=== PATIENT | male | born 1960 | race Caucasian/White ===

== ENCOUNTER 2017-02-07 16:02 | Outpatient (CLI) | payer BC | END 2017-02-07 20:00 | disposition home or self-care (01) | LOC: SRD 16:02 | PROVIDERS: ATTEND Internal Medicine | DX: J98.4 Other disorders of lung (principal) | CPT/HCPCS: 71020-TC ==

== ENCOUNTER 2017-04-29 10:19 | Day surgery (SDC) | payer BC ==
[2017-04-26 15:22] LABS: BASOPHILS % (AUTO) 0.4 % (0.0-2.0); EOSINOPHILS # (AUTO) 0.5 K/uL (0.0-0.4); EOSINOPHILS % (AUTO) 4.4 % (0.0-4.0); HEMATOCRIT 33.9 % (36-54); HEMOGLOBIN 11.2 g/dL (14.0-18.0); LYMPHOCYTES # (AUTO) 2.7 K/uL (1.0-5.5); LYMPHOCYTES % (AUTO) 25.2 % (20.5-51.5); MEAN CORPUSCULAR HEMOGLOBIN 26 pg (27-31); MEAN CORPUSCULAR HGB CONC 33 % (32-36); MEAN CORPUSCULAR VOLUME 79 fL (79.0-98.0); MONOCYTES # (AUTO) 1.1 K/uL (0.0-1.0); MONOCYTES % (AUTO) 9.8 % (1.7-9.3); NEUTROPHILS # (AUTO) 6.5 K/uL (1.8-7.7); NEUTROPHILS % (AUTO) 60.2 % (40.0-70.0); PLATELET COUNT (AUTO) 191 K/uL (130-430); RED BLOOD CELL COUNT(AUTO) 4.28 MIL/uL (4.2-6.2); RED CELL DISTRIBUTION WIDTH 15.4 % (9.0-15.0); WHITE BLOOD COUNT (AUTO) 10.8 K/uL (4.8-10.8)
[2017-04-26 15:34] LABS: ALBUMIN 3.5 g/dL (3.4-4.8); CALCIUM 8.8 mg/dL (8.4-11.0); CREATININE 1.2 mg/dL (0.55-1.30); POTASSIUM 3.9 mmol/L (3.5-5.1); TOTAL BILIRUBIN 0.4 mg/dL (0.0-1.0); TOTAL PROTEIN, SERUM 6.8 g/dL (6.4-8.3)
[2017-04-26 15:40] LABS: BILIRUBIN,URINE NEGATIVE (NEGATIVE); BLOOD, URINE NEGATIVE (NEGATIVE); CLARITY/URINE CLEAR (CLEAR); COLOR,URINE YELLOW (YELLOW); GLUCOSE,URINE 3+ (NEGATIVE); INR 0.9 (0.80-1.20); KETONES,URINE NEGATIVE (NEGATIVE); LEUKOCYTE ESTERASE ,URINE NEGATIVE (NEGATIVE); NITRITE, URINE NEGATIVE (NEGATIVE); PH,URINE 5.5 (5.0-8.0); PROTEIN URINE 1+ (NEGATIVE); PROTHROMBIN TIME 9.7 SECS (9.5-12.5); UROBILINOGEN,URINE 0.2 (0.2-1.0)
[2017-04-26 15:44] LABS: BACTERIA,URINE FEW /HPF (None Seen); MUCUS,URINE None Seen /LPF (None Seen); RBC,URINE NONE SEEN /HPF (0-3); WBC,URINE 0-3 /HPF (0-3)
[~2017-04-29] VITALS: Ht 177.8 cm; Wt 99.8 kg
[2017-04-29] VITALS: BP_SYST 133
[2017-04-29] MEDS ORDERED: MIDAZOLAM HCL 5 MG/5 ML VIAL IVP ONE (13:52)
[2017-04-29] MEDS ORDERED: NS IRRIG SOLN 1000 ML IR ONE (13:52)
[2017-04-29] MEDS ORDERED: fentaNYL CITRATE/PF 100 MCG/2 ML AMP IVP ONE (13:52)
[2017-04-29] MEDS ORDERED: PROPOFOL 200MG/ 20ML VIAL (DIPRIVAN) IV ONE (13:52)
[2017-04-29] MEDS ORDERED: SEVOFLURANE 15 MIN GAS INH ONE (13:52)
[2017-04-29] MEDS ORDERED: ONDANSETRON HCL 4 MG/2 ML VIAL IVP ONE (13:52)
[2017-04-29] MEDS ORDERED: LR 1,000 ML IV.SOLN IV ONE (13:52)
[2017-04-29] MEDS ORDERED: CEFAZOLIN 2 GM IVPB PREMIX 50 ML IV ONE (13:52)
[2017-04-29] MEDS ORDERED: POLYMYXIN 500,000/BACIT.10,000 UNITS in NS IRR 1 L IR ONE (14:45)
[2017-04-29] MEDS ORDERED: LR 1,000 ML IV ONE (15:11)
[2017-04-29] MEDS ORDERED: ONDANSETRON HCL 4 MG/2 ML VIAL IVP PRN ×2 (15:15)
[2017-04-29] MEDS ORDERED: NALOXONE HCL 0.4 MG/ML AMP (NARCAN) IVP PRN (15:15)
[2017-04-29] MEDS ORDERED: DIPHENHYDRAMINE INJ 50 MG/ML VIAL IVP PRN (15:15)
[2017-04-29] MEDS ORDERED: ePHEDrine sulfate 50 MG/ML VIAL IVP PRN (15:15)
[2017-04-29] MEDS ORDERED: NALBUPHINE HCL 10 MG/ML AMP IVP PRN (15:15)
[2017-04-29] MEDS ORDERED: HYDROcodone/ACETAMIN 5-325 MG TAB (NORCO/ VICODIN) PO PRN (15:30)
[2017-04-29] MEDS ORDERED: MIDAZOLAM HCL 2 MG/2 ML VIAL (VERSED) IVP ONE (15:30)
[2017-04-29] MEDS ORDERED: MIDAZOLAM HCL 2 MG/2 ML VIAL (VERSED) ONE (15:34)
[2017-04-29] MEDS: fentaNYL CITRATE/PF 100 MCG/2 ML AMP IVP PRN ×2 (15:45→15:49)
[2017-04-29] MEDS ORDERED: DOXA2TAB2 PO (15:51)
[2017-04-29] MEDS ORDERED: ESCI10TA54 PO (15:51)
[2017-04-29] MEDS ORDERED: IBUP100T8 PO (15:51)
[2017-04-29] MEDS ORDERED: ALPR0.5T96 PO (15:51)
[2017-04-29] MEDS ORDERED: METF-510 PO (15:51)
[2017-04-29] MEDS ORDERED: BACL20TA PO (15:51)
[2017-04-29] MEDS ORDERED: HYDR-1115 PO (15:51)
[2017-04-29] MEDS ORDERED: TOPXL100 PO (15:51)
[2017-04-29] MEDS ORDERED: PRED5TAB PO (15:51)
[2017-04-29] MEDS ORDERED: ASPI-862 PO (15:51)
[2017-04-29] MEDS ORDERED: ALLO300T2 PO (15:51)
[2017-04-29] MEDS ORDERED: LIP20 PO (15:51)
[2017-04-29] MEDS ORDERED: LISI40TA4 PO (15:51)
[2017-04-29] MEDS ORDERED: NOR10 PO (15:51)
[2017-04-29] MEDS ORDERED: HYDR-4100 PO (15:51)
[2017-04-29] MEDS ORDERED: fentaNYL CITRATE/PF 100 MCG/2 ML AMP ONE (15:52)
[2017-04-29 17:00] VITALS: BP_SYST 128
[2017-04-29] MEDS: HYDROmorphone 2 MG/ML VIAL IVP PRN ×2 (17:39→23:25)
[2017-04-29 18:53] VITALS: BP_SYST 131
[2017-04-29 19:17] VITALS: BP_SYST 132
[2017-04-29] MEDS ORDERED: ALLOPURINOL 300 MG TABLET (ZYLOPRIM) PO ONE (20:45)
[2017-04-29] MEDS ORDERED: NACL 0.9% 1,000 ML IV SCH (22:00)
[2017-04-29] MEDS ORDERED: BACLOFEN 10 MG TABLET PO ONE (22:15)
[2017-04-29] MEDS ORDERED: ALPRAZolam 0.25 MG TABLET PO ONE (22:15)
[2017-04-29] MEDS: INSULIN REGULAR, HUMAN 100 UNITS/ML, 10 ML VIAL (novoLIN R) SUBCUT PRN (22:43)
[2017-04-30] VITALS: BP_SYST 133
[2017-04-30] MEDS ORDERED: COMMUNICATION ORDER XX ONE (00:30)
[2017-04-30] MEDS: HYDROmorphone 2 MG/ML VIAL IVP PRN (05:47)
[2017-04-30 06:01] VITALS: BP_SYST 140
[2017-04-30] MEDS: INSULIN REGULAR, HUMAN 100 UNITS/ML, 10 ML VIAL (novoLIN R) SUBCUT PRN (06:27)
[2017-04-30] MEDS ORDERED: DEXTROSE 50%-WATER 50 ML DISP.SYRIN IVP PRN ×2 (07:00)
[2017-04-30] MEDS ORDERED: GLUCOSE 15 GM GEL (in 37.5 GM TUBE) PO PRN ×2 (07:00)
[2017-04-30 08:00] VITALS: BP_SYST 131
[2017-04-30] MEDS ORDERED: ATORVASTATIN 20 MG TABLET PO SCH (09:00)
[2017-04-30] MEDS ORDERED: ALPRAZolam 0.25 MG TABLET PO SCH ×2 (09:00→21:00)
[2017-04-30] MEDS ORDERED: PREDNISONE 5 MG TABLET PO SCH (09:00)
[2017-04-30] MEDS ORDERED: LISINOPRIL 20 MG TABLET PO SCH (09:00)
[2017-04-30] MEDS ORDERED: DOXAZOSIN MESYLATE 2 MG TABLET PO SCH (09:00)
[2017-04-30] MEDS ORDERED: METOPROLOL SUCCINATE 50 MG TAB.SR.24H (TOPROL XL) PO SCH (09:00)
[2017-04-30] MEDS ORDERED: ASPIRIN 325 MG TABLET (ECOTRIN) PO SCH (09:00)
[2017-04-30] MEDS ORDERED: CITALOPRAM HYDROBROMIDE 20 MG TABLET PO SCH (09:00)
[2017-04-30] MEDS ORDERED: BACLOFEN 10 MG TABLET PO SCH ×2 (09:00→21:00)
[2017-04-30] MEDS ORDERED: HYDROcodone/ACETAMIN 10-325 MG TAB PO SCH (09:00)
[2017-04-30] MEDS ORDERED: IBUPROFEN 600 MG TABLET PO SCH (09:00)
[2017-04-30] MEDS ORDERED: ALLOPURINOL 300 MG TABLET (ZYLOPRIM) PO SCH (09:00)
[2017-04-30] MEDS ORDERED: amLODIPine BESYLATE 10 MG TABLET PO SCH (09:00)
[2017-04-30] MEDS ORDERED: ESCITALOPRAM OXALATE 10 MG TABLET PO SCH (09:00)
[2017-04-30] MEDS ORDERED: hydrALAZINE HCL 25 MG TABLET PO SCH (09:00)
[2017-04-30 12:47] VITALS: BP_SYST 134
[2017-04-30 13:04] VITALS: BP_SYST 134
== END 2017-04-30 13:45 | disposition home or self-care (01) ==
LOC: SDS 10:19 → SMU 10:21 → EDSTATUS 12:00 → SMU 16:16 → SDS 16:16 → SMU 16:35 → SDS 04-30 13:45
PROVIDERS: ATTEND Specialist
DX: K40.90 Unilateral inguinal hernia, without obstruction or gangrene, not specified as recurrent (principal); D17.6 Benign lipomatous neoplasm of spermatic cord; Z88.8 Allergy status to other drugs, medicaments and biological substances; G62.9 Polyneuropathy, unspecified; Z85.47 Personal history of malignant neoplasm of testis; Z95.1 Presence of aortocoronary bypass graft; I25.10 Atherosclerotic heart disease of native coronary artery without angina pectoris; N18.9 Chronic kidney disease, unspecified; I12.9 Hypertensive chronic kidney disease with stage 1 through stage 4 chronic kidney disease, or unspecified chronic kidney disease; I21.3 ST elevation (STEMI) myocardial infarction of unspecified site; E66.9 Obesity, unspecified
CPT/HCPCS: 36415; 49505; 71020; 80053; 81000; 82962; 85025; 85610; 85730; 87081; 88304; 93005; C1781; J0690; J1170 ×2; J1815; J2250; J2405; J2704; J3010; J3465; J7030; J7120; J7512